=== PATIENT | female | born 1960 | race Caucasian/White ===

== ENCOUNTER → 2017-12-10 | Day surgery (SDC) | payer BC, OTHER ==
[~2017-12-10] MED LIST: LACTATED RINGERS 1,000 ML ONE; MIDAZOLAM INJ 2 MG/2 ML VIAL ONE; PROPOFOL 200 MG/20 ML VIAL IV ONE
--- NOTE | 2017-12-10 09:00 | OP ---
DATE OF PROCEDURE: 12/10/17 PREOPERATIVE DIAGNOSIS: 1. Colorectal cancer screening. POSTOPERATIVE DIAGNOSIS: 1. Colonic polyps. PROCEDURE: 1. Colonoscopy. SURGEON: Dayne Obando MD ANESTHESIA: Monitored anesthesia care. ESTIMATED BLOOD LOSS: Less than 5 mL. COMPLICATIONS: None. PROCEDURE: The patient was placed in the left lateral decubitus position. After monitored anesthesia care with deep sedation was achieved, the adult Olympus colonoscope was inserted through the anus and into the rectum and advanced to the cecum with ease under direct visualization. The cecum was identified by the terminal ileum, ileocecal valve and the appendiceal orifice. Photodocumentation of these locations was performed. The endoscope was then progressively withdrawn and the total colonic lumen evaluated. The patient's bowel preparation was excellent. Retroflexion was performed in the rectum. The endoscope was then withdrawn and the procedure terminated. The patient tolerated the procedure well with no immediate complications. FINDINGS: Two sessile polyps measuring 4 mm each were found in the sigmoid colon. These polyps were removed with a cold snare and retrieved for pathology. The remainder of the colonoscopy was unremarkable. The terminal ileum was normal. IMPRESSION: Two sigmoid colon polyps status post polypectomy. RECOMMENDATIONS: 1. Okay to discharge home. 2. Resume home medications and diet. 3. Repeat colonoscopy in 5 to 10 years depending on pathology results. 4. Followup in GI clinic with Dr. Obando in 3 months. #[id number] [facility]
[2017-12-10 13:37] VITALS: BP 126/77; TEMP 98.6; O2SAT 98
== END ==
LOC: AMB 12-09 07:19
PROVIDERS: ATTEND Internal Medicine Gastroenterology
DX: Z12.11 Encounter for screening for malignant neoplasm of colon (principal); D12.5 Benign neoplasm of sigmoid colon; K59.04 Chronic idiopathic constipation; I10 Essential (primary) hypertension; E11.9 Type 2 diabetes mellitus without complications; K21.9 Gastro-esophageal reflux disease without esophagitis; E66.9 Obesity, unspecified; Z68.42 Body mass index [BMI] 45.0-49.9, adult; Z88.0 Allergy status to penicillin; Z79.84 Long term (current) use of oral hypoglycemic drugs; Z79.899 Other long term (current) drug therapy
CPT/HCPCS: 00811; 36416; 45385; 82948; J2250; J3490; J7120

== ENCOUNTER → 2019-10-04 | Outpatient (CLI) | payer OTHER | LOC: GMAJ 10:14 | PROVIDERS: ATTEND Family Medicine | DX: E11.9 Type 2 diabetes mellitus without complications (principal); I10 Essential (primary) hypertension; E78.2 Mixed hyperlipidemia ==

== ENCOUNTER 2020-02-09 11:21 | Outpatient (CLI) | payer OTHER | END 2020-02-14 12:30 | disposition home or self-care (01) | LOC: INFRM 11:21 | PROVIDERS: ATTEND Family Medicine | DX: U07.1 COVID-19 (principal); E11.9 Type 2 diabetes mellitus without complications; I10 Essential (primary) hypertension; Z23 Encounter for immunization ==